=== PATIENT | male | born 1935 | race Caucasian/White ===

== ENCOUNTER 2018-10-14 07:05 | Emergency (ER) | payer MEDICARE, OTHER ==
[2018-10-14 07:29] VITALS: BP 106/59; PULSE 101
[2018-10-14 08:21] LABS: CHLORIDE,CL 99 mmol/L (98-107); SODIUM,NA 137 mmol/L (136-145)
[2018-10-14 08:23] LABS: ANION GAP 14.7 mmol/L (10-20)
--- NOTE | 2018-10-14 08:46 | EDM.PDOC ---
ED HPI GENERAL MEDICAL PROBLEM - General Chief Complaint: General Stated Complaint: FELL DOWN THE STEPS Time Seen by Provider: 10/14/18 07:08 Source of Information: Reports: Patient History Limitations: Reports: No Limitations - History of Present Illness INITIAL COMMENTS - FREE TEXT/NARRATIVE: Pt. presents to ER with complaints of weakness and fall. Pt. states that his "legs gave out" and he fell down 3 stairs, landed on a landing, and then "slid" in a more controlled fashion down his backside/back. Denies striking his head. No neck pain. Pt. was able to get off the floor and ambulate to his car. His drove him. Pt. only complaint besides weakness was superficial upper arm/shoulder pain. Pt. states that he has been having increased weakness over the past several weeks to month. He recently had some dental work done and states that he is on antibiotics. He has also has some facial pain/sinus congestion and wonders if he has a sinus infection. Denies any dysuria. No urinary discoloration. Denies any rashes or skin lesions. No nausea, vomiting, or diarrhea. No melena, hematochezia, or hematemesis. Pt. denies any back or lower extremity injury in the fall. Onset: Today Location: Reports: Face, Upper Extremity, Left, Generalized Quality: Reports: Ache Severity: Mild Associated Symptoms: Reports: Weakness - Related Data Allergies Allergy/AdvReac Type Severity Reaction Status Date / Time No Known Allergies Allergy Verified 10/14/18 07:20 Home Meds: Home Meds Amoxicillin 500 mg TID 10/14/18 [History] Aspirin 81 mg DAILY 10/14/18 [History] Chlorhexidine Gluconate 15 ml BID 10/14/18 [History] Cholecalciferol (Vitamin D3) [Vitamin D3] 1,000 units DAILY 10/14/18 [History] L.acidoph,Paracasei, B.lactis [Probiotic] 1 cap DAILY 10/14/18 [History] Past Medical History HEENT History: Reports: Cataract Cardiovascular History: Reports: None Respiratory History: Reports: Other (See Below) Other Respiratory History: recently hospitalized for pneumonia Gastrointestinal History: Reports: Other (See Below) Other Gastrointestinal History: hernia repair Genitourinary History: Reports: Prostate Disorder Other Genitourinary History: prostate cancer Musculoskeletal History: Reports: Arthritis, Back Pain, Chronic Neurological History: Reports: None Psychiatric History: Reports: None Endocrine/Metabolic History: Reports: None Hematologic History: Reports: None Immunologic History: Reports: None Oncologic (Cancer) History: Reports: Prostate Other Oncologic History: 2010 - Past Surgical History HEENT Surgical History: Reports: Cataract Surgery GI Surgical History: Reports: Hernia Repair/Other Oncologic Surgical History: Reports: None Social & Family History - Family History Family Medical History: Noncontributory - Tobacco Use Smoking Status *Q: Never Smoker - Caffeine Use Caffeine Use: Reports: Coffee, Soda - Recreational Drug Use Recreational Drug Use: No - Living Situation & Occupation Living situation: Reports: , with Spouse ED ROS GENERAL - Review of Systems Review Of Systems: See Below Constitutional: Reports: Malaise, Weakness, Fatigue. Denies: Fever, Chills, Diaphoresis HEENT: Reports: Sinus Problem Respiratory: Reports: No Symptoms. Denies: Shortness of Breath, Wheezing, Cough Cardiovascular: Reports: No Symptoms. Denies: Chest Pain, Dyspnea on Exertion, Edema, Palpitations, PND Endocrine: Reports: No Symptoms GI/Abdominal: Reports: No Symptoms. Denies: Abdominal Pain, Black Stool, Distension, Hematemesis, Hematochezia, Melena : Reports: No Symptoms Musculoskeletal: Reports: No Symptoms Skin: Reports: No Symptoms Neurological: Reports: Weakness. Denies: Confusion, Dizziness, Headache Psychiatric: Reports: No Symptoms Hematologic/Lymphatic: Reports: No Symptoms Immunologic: Reports: No Symptoms ED EXAM, GENERAL - Physical Exam Exam: See Below Exam Limited By: No Limitations General Appearance: Alert, WD/WN, No Apparent Distress Eye Exam: Bilateral Eye: EOMI, Normal Fundi, Normal Inspection, PERRL Ears: Normal External Exam, Normal Canal, Hearing Grossly Normal, Normal TMs Ear Exam: Bilateral Ear: Auricle Normal, Canal Normal, TM normal Nose: Normal Inspection, Normal Mucosa, No Blood Throat/Mouth: Normal Inspection, Normal Lips, Normal Teeth, Normal Gums, Normal Oropharynx, Normal Voice, No Airway Compromise Head: Atraumatic, Normocephalic Neck: Normal Inspection, Supple, Non-Tender, Full Range of Motion Respiratory/Chest: No Respiratory Distress, Lungs Clear, Normal Breath Sounds, No Accessory Muscle Use, Chest Non-Tender Cardiovascular: Normal Peripheral Pulses, Regular Rate, Rhythm, No Edema, No Gallop, No JVD, No Murmur, No Rub Peripheral Pulses: 4+: Radial (L) GI/Abdominal: Normal Bowel Sounds, Soft, Non-Tender, No Organomegaly, No Distention, No Abnormal Bruit, No Mass, Pelvis Stable (Male) Exam: Deferred Rectal (Males) Exam: Deferred Back Exam: Normal Inspection, Full Range of Motion Extremities: Normal Inspection, Normal Range of Motion, Non-Tender, No Pedal Edema, Normal Capillary Refill Neurological: Alert, Oriented, CN II-XII Intact, Normal Cognition, Normal Gait, Normal Reflexes, No Motor/Sensory Deficits Psychiatric: Normal Affect, Normal Mood Skin Exam: Warm, Dry, Intact, Normal Color, No Rash Lymphatic: No Adenopathy Course - Vital Signs Last Recorded V/S: Last Vital Signs Temp 37.6 C 10/14/18 07:05 Pulse 101 H 10/14/18 07:05 Resp 16 10/14/18 07:05 BP 106/59 L 10/14/18 07:05 Pulse Ox 94 L 10/14/18 07:05 - Orders/Labs/Meds Orders: Active Orders 24 hr Category Date Time Status EKG Documentation Completion [RC] STAT Care 10/14/18 07:28 Active CULTURE BLOOD [BC] Stat Lab 10/14/18 07:45 Received CULTURE BLOOD [BC] Stat Lab 10/14/18 07:51 Received CULTURE URINE [RM] Stat Lab 10/14/18 09:22 Ordered Blood Culture x2 Reflex Set [OM.PC] Stat Oth 10/14/18 07:31 Ordered Labs: Laboratory Tests 10/14/18 10/14/18 10/14/18 Range/Units 07:45 07:45 07:45 WBC 8.6 (4.0-10.0) x10^3/uL RBC 4.48 L (4.5-6.0) x10^6/uL Hgb 13.9 L (14.0-18.0) g/dL Hct 41.1 (40.0-52.0) % MCV 91.7 D (78.0-93.0) fL MCH 31.0 (26.0-32.0) pg MCHC 33.8 (32.0-36.0) g/dL RDW Coeff of Acacia 12.5 (10.0-15.0) % Plt Count 204 (130-400) x10^3/uL Neut % (Auto) 86.5 H (50.0-80.0) % Lymph % (Auto) 5.6 L (25.0-50.0) % Hunt % (Auto) 5.9 (2.0-11.0) % Eos % (Auto) 1.7 (0.0-4.0) % Baso % (Auto) 0.3 (0.2-1.2) % PT 11.2 (10.0-12.8) SEC INR 1.0 L (2.0-3.5) Sodium 137 (136-145) mmol/L Potassium 3.7 (3.5-5.1) mmol/L Chloride 99 (98-107) mmol/L Carbon Dioxide 27 (21-32) mmol/L Anion Gap 14.7 (10-20) mmol/L BUN 19 H (7-18) mg/dL Creatinine 1.0 (0.70-1.30) mg/dL Est Cr Clr Drug Dosing 67.36 mL/min Estimated GFR (MDRD) > 60 Glucose 133 H (74-106) mg/dL Lactic Acid (0.4-2.0) mmol/L Calcium 8.7 (8.5-10.1) mg/dL Corrected Calcium 8.86 (8.5-10.1) mg/dL Phosphorus 2.4 L (2.6-4.7) mg/dL Magnesium 2.2 (1.8-2.4) mg/dL Total Bilirubin 0.7 (0.2-1.0) mg/dL AST 22 (15-37) U/L ALT 22 (16-63) U/L Alkaline Phosphatase 70 (46-116) U/L Troponin I < 0.017 (<=0.056) ng/mL C-Reactive Protein 0.4 (<=0.9) mg/dL Total Protein 6.8 (6.4-8.2) g/dL Albumin 3.8 (3.4-5.0) g/dL Globulin 3.0 Albumin/Globulin Ratio 1.27 Urine Color (YELLOW) Urine Appearance (CLEAR) Urine pH (5.0-8.0) Ur Specific Gerber Urine Protein (NEGATIVE) mg/dL Urine Glucose (UA) (NEGATIVE) mg/dL Urine Ketones (NEGATIVE) mg/dL Urine Occult Blood (NEGATIVE) Urine Nitrite (NEGATIVE) Urine Bilirubin (NEGATIVE) Urine Urobilinogen (0.2) EU/dL Ur Leukocyte Esterase (NEGATIVE) Urine RBC (NOT SEEN) /HPF Urine WBC (NOT SEEN) /HPF Ur Squamous Epith Cells (NEGATIVE) /HPF Urine Bacteria (NEGATIVE) /HPF Urine Mucus (NEGATIVE) /LPF 10/14/18 10/14/18 Range/Units 07:45 08:50 WBC (4.0-10.0) x10^3/uL RBC (4.5-6.0) x10^6/uL Hgb (14.0-18.0) g/dL Hct (40.0-52.0) % MCV (78.0-93.0) fL MCH (26.0-32.0) pg MCHC (32.0-36.0) g/dL RDW Coeff of Acacia (10.0-15.0) % Plt Count (130-400) x10^3/uL Neut % (Auto) (50.0-80.0) % Lymph % (Auto) (25.0-50.0) % Hunt % (Auto) (2.0-11.0) % Eos % (Auto) (0.0-4.0) % Baso % (Auto) (0.2-1.2) % PT (10.0-12.8) SEC INR (2.0-3.5) Sodium (136-145) mmol/L Potassium (3.5-5.1) mmol/L Chloride (98-107) mmol/L Carbon Dioxide (21-32) mmol/L Anion Gap (10-20) mmol/L BUN (7-18) mg/dL Creatinine (0.70-1.30) mg/dL Est Cr Clr Drug Dosing mL/min Estimated GFR (MDRD) Glucose (74-106) mg/dL Lactic Acid 1.7 (0.4-2.0) mmol/L Calcium (8.5-10.1) mg/dL Corrected Calcium (8.5-10.1) mg/dL Phosphorus (2.6-4.7) mg/dL Magnesium (1.8-2.4) mg/dL Total Bilirubin (0.2-1.0) mg/dL AST (15-37) U/L ALT (16-63) U/L Alkaline Phosphatase (46-116) U/L Troponin I (<=0.056) ng/mL C-Reactive Protein (<=0.9) mg/dL Total Protein (6.4-8.2) g/dL Albumin (3.4-5.0) g/dL Globulin Albumin/Globulin Ratio Urine Color Yellow (YELLOW) Urine Appearance Slightly cloudy H (CLEAR) Urine pH 6.5 (5.0-8.0) Ur Specific Gerber 1.020 Urine Protein 30 H (NEGATIVE) mg/dL Urine Glucose (UA) Negative (NEGATIVE) mg/dL Urine Ketones 15 H (NEGATIVE) mg/dL Urine Occult Blood Trace-lysed H (NEGATIVE) Urine Nitrite Negative (NEGATIVE) Urine Bilirubin Negative (NEGATIVE) Urine Urobilinogen 0.2 (0.2) EU/dL Ur Leukocyte Esterase Trace H (NEGATIVE) Urine RBC 5-10 H (NOT SEEN) /HPF Urine WBC 5-10 H (NOT SEEN) /HPF Ur Squamous Epith Cells Rare (NEGATIVE) /HPF Urine Bacteria Occasional H (NEGATIVE) /HPF Urine Mucus Few H (NEGATIVE) /LPF - Radiology Interpretation Free Text/Narrative:: CT head without contrast negative for acute pathology. Chest x-ray is negative. Departure - Departure Time of Disposition: 09:23 Disposition: Home, Self-Care 01 Clinical Impression: Fall (on) (from) other stairs and steps, initial encounter, UTI, Urinary tract infectious disease - Discharge Information Instructions: Amoxicillin; Clavulanic Acid tablets, Urinary Tract Infection, Adult, Fall Prevention in the Home, Adult, Probiotics Referrals: Davonte Figuereod MD [Primary Care Provider] - Forms: ED Department Discharge Additional Instructions: Stop the amoxicillin Start augmentin. Continue to take the probiotic. Drink plenty of fluids Return to ER if you have increased pain elsewhere, chest pain, shortness of breath, difficulty walking or speaking. - Problem List Review Problem List Initiated/Reviewed/Updated: Yes - My Orders Last 24 Hours: My Active Orders 10/14/18 07:28 EKG Documentation Completion [RC] STAT 10/14/18 07:31 Blood Culture x2 Reflex Set [OM.PC] Stat 10/14/18 07:45 CULTURE BLOOD [BC] Stat 10/14/18 07:51 CULTURE BLOOD [BC] Stat 10/14/18 09:22 CULTURE URINE [RM] Stat - Assessment/Plan Last 24 Hours: My Active Orders 10/14/18 07:28 EKG Documentation Completion [RC] STAT 10/14/18 07:31 Blood Culture x2 Reflex Set [OM.PC] Stat 10/14/18 07:45 CULTURE BLOOD [BC] Stat 10/14/18 07:51 CULTURE BLOOD [BC] Stat 10/14/18 09:22 CULTURE URINE [RM] Stat Plan: Mild UTI vs. asymptomatic bacturia. He only has a trace of LE in his urine, but given his weakness we will change his antibiotic from amoxicillin to augmentin to cover for more urinary pathogens. He has been increasingly weak over the summer so this could very likely be a chronic problem for Mr. Nazario. Drink plenty of fluids. Was given a handout on falls and fall protection. Advised to follow-up in clinic if he is still having problems, especially chest pain, shortness of breath, difficulty speaking or walking. Urine will be cultured.
--- NOTE | 2018-10-14 08:54 | CT ---
[id number] CT/CT Head WO IV EXAM: CT Head WO IV CLINICAL DATA: TRAUMA COMPARISON: CORRELATION IS MADE WITH THE EXAM OF JANUARY 14, 2016. FINDINGS: There is no mass or mass effect. There is no hemorrhage or hydrocephalus. There are no extra-axial fluid collections. There are no sites of abnormal attenuation. IMPRESSION: NO PLAIN CT EVIDENCE OF ACUTE INTRACRANIAL PROCESS. Sky Ortega MD 10/14/18 0852 Thank you for allowing us to participate in the care of your patient.
== END 2018-10-14 09:30 | disposition home or self-care (01) ==
LOC: VM.ED 07:05
DX: N39.0 Urinary tract infection, site not specified (principal); Z79.899 Other long term (current) drug therapy; Z79.82 Long term (current) use of aspirin; W10.9XXA Fall (on) (from) unspecified stairs and steps, initial encounter
CPT/HCPCS: 36415; 70450; 80053; 81001; 83605; 83735; 84100; 84484; 85025; 85610; 86140; 87040; 87086; 93005; 99284-25; 99284-GF

== ENCOUNTER 2018-10-20 13:46 | Inpatient (IN) | payer MEDICARE, OTHER ==
[2018-10-20] MEDS ORDERED: Acetaminophen 500 MG Tab PO PRN (14:25)
[2018-10-20] MEDS ORDERED: Docusate Sodium 100 MG Cap PO PRN (14:28)
[2018-10-20] MEDS ORDERED: Haloperidol 0.5 MG Tab PO PRN (14:30)
[2018-10-20] MEDS: Chlorhexidine Gluconate 0.12% Oral Rinse 15 ML Cup PO SCH (21:37)
[2018-10-21] MEDS ORDERED: Haloperidol 0.5 MG Tab PO PRN (06:04)
[2018-10-21] MEDS: Chlorhexidine Gluconate 0.12% Oral Rinse 15 ML Cup PO SCH ×2 (08:12→19:24)
[2018-10-21] MEDS: Aspirin 81 MG Tab.Chew PO SCH (08:12)
[2018-10-21] MEDS: Enoxaparin 40 MG/0.4 ML Syringe SUBCUT SCH (08:12)
[2018-10-21] MEDS: Lactobacillus Rhamnosus GG (Probiotic) Cap PO SCH (08:12)
[2018-10-21] MEDS: Cholecalciferol (Vitamin D3) 25 MCG Tab PO SCH (08:12)
[2018-10-22] MEDS: Enoxaparin 40 MG/0.4 ML Syringe SUBCUT SCH (08:19)
[2018-10-22] MEDS: Aspirin 81 MG Tab.Chew PO SCH (08:20)
[2018-10-22] MEDS: Lactobacillus Rhamnosus GG (Probiotic) Cap PO SCH (08:20)
[2018-10-22] MEDS: Cholecalciferol (Vitamin D3) 25 MCG Tab PO SCH (08:20)
[2018-10-22] MEDS: Chlorhexidine Gluconate 0.12% Oral Rinse 15 ML Cup PO SCH ×2 (08:20→21:30)
[2018-10-23] MEDS: Cholecalciferol (Vitamin D3) 25 MCG Tab PO SCH (08:25)
[2018-10-23] MEDS: Aspirin 81 MG Tab.Chew PO SCH (08:25)
[2018-10-23] MEDS: Chlorhexidine Gluconate 0.12% Oral Rinse 15 ML Cup PO SCH ×2 (08:25→20:24)
[2018-10-23] MEDS: Lactobacillus Rhamnosus GG (Probiotic) Cap PO SCH (08:25)
[2018-10-23] MEDS: Enoxaparin 40 MG/0.4 ML Syringe SUBCUT SCH (08:25)
--- NOTE | 2018-10-23 14:37 | PCM.PN ---
- General Info Date of Service: 10/23/18 Admission Dx/Problem (Free Text): Subjective. Patient's doing well. He feels strength is slowly improving. PT doesn't feel he is quite goals but should be within the next week or so. He's been afebrile normoxic. He is finished antibiotics. Still some mild delirium- type confusion. Head CT was otherwise normal in the ER. Basic labs were normal. Objective: Vital signs are still stable. He is sitting in chair talking with family smiling happy. Can recall year and place but some difficulty with month. Heart and lungs are clear extremity is warm well perfused. Assessment and plan: Community acquired pneumonia has improved. He's finished antibiotics. Still little bit weak with gait. Little bit of fall risk. PT continue to work with them. Probably discharge early next week. Had some mild sundowning-type delirium here. We will reevaluate only seen in the clinic in a couple weeks for follow-up. Still having issues could pursue more of a dementia workup. Head CT was otherwise normal one week ago. he shuffles a little bit but not a lot of tremor, could consider movement disorder as well. - Patient Data Vitals - Most Recent: Last Vital Signs Temp 36.3 C 10/23/18 05:16 Pulse 87 10/23/18 05:16 Resp 20 10/23/18 05:16 BP 131/67 10/23/18 05:16 Pulse Ox 93 L 10/23/18 05:16 Weight - Most Recent: 102.143 kg I&O - Last 24 Hours: Intake & Output 10/22/18 10/23/18 10/23/18 22:59 06:59 14:59 Intake Total 660 Balance 660 Med Orders - Current: Current Medications Acetaminophen (Tylenol Extra Strength) 500 mg PO Q4H PRN PRN Reason: Fever Greater Than 102 Aspirin (Aspirin) 81 mg PO WITHBREAKFAST [facility] Last Admin: 10/23/18 08:25 Dose: 81 mg Chlorhexidine Gluconate (Peridex 0.12% Rinse) 15 ml PO BID [facility] Last Admin: 10/23/18 08:25 Dose: 15 ml Cholecalciferol (Vitamin D3) 25 mcg PO DAILY [facility] Last Admin: 10/23/18 08:25 Dose: 25 mcg Docusate Sodium (Colace) 100 mg PO BID PRN PRN Reason: Constipation Enoxaparin Sodium (Lovenox) 40 mg SUBCUT Q24H [facility] Last Admin: 10/23/18 08:25 Dose: 40 mg Haloperidol (Haldol) 0.25 mg PO DAILY PRN PRN Reason: Agitation Lactobacillus Rhamnosus (Culturelle) 1 cap PO DAILY [facility] Last Admin: 10/23/18 08:25 Dose: 1 cap Discontinued Medications Haloperidol (Haldol) 0.25 mg PO ONETIME PRN PRN Reason: Agitation Last Admin: 10/20/18 23:48 Dose: 0.25 mg - Problem List Review Problem List Initiated/Reviewed/Updated: Yes
[2018-10-24] MEDS: Chlorhexidine Gluconate 0.12% Oral Rinse 15 ML Cup PO SCH ×2 (07:40→21:43)
[2018-10-24] MEDS: Enoxaparin 40 MG/0.4 ML Syringe SUBCUT SCH (07:40)
[2018-10-24] MEDS: Lactobacillus Rhamnosus GG (Probiotic) Cap PO SCH (07:40)
[2018-10-24] MEDS: Cholecalciferol (Vitamin D3) 25 MCG Tab PO SCH (07:40)
[2018-10-24] MEDS: Aspirin 81 MG Tab.Chew PO SCH (07:40)
[2018-10-25] MEDS: Enoxaparin 40 MG/0.4 ML Syringe SUBCUT SCH (08:41)
[2018-10-25] MEDS: Lactobacillus Rhamnosus GG (Probiotic) Cap PO SCH (08:42)
[2018-10-25] MEDS: Cholecalciferol (Vitamin D3) 25 MCG Tab PO SCH (08:42)
[2018-10-25] MEDS: Aspirin 81 MG Tab.Chew PO SCH (08:42)
[2018-10-25] MEDS: Chlorhexidine Gluconate 0.12% Oral Rinse 15 ML Cup PO SCH ×2 (08:43→21:32)
[2018-10-26 05:36] VITALS: BP 129/74
[2018-10-26] MEDS: Chlorhexidine Gluconate 0.12% Oral Rinse 15 ML Cup PO SCH (07:47)
[2018-10-26] MEDS: Enoxaparin 40 MG/0.4 ML Syringe SUBCUT SCH (07:47)
[2018-10-26] MEDS: Cholecalciferol (Vitamin D3) 25 MCG Tab PO SCH (07:47)
[2018-10-26] MEDS: Aspirin 81 MG Tab.Chew PO SCH (07:47)
[2018-10-26] MEDS: Lactobacillus Rhamnosus GG (Probiotic) Cap PO SCH (07:47)
--- NOTE | 2018-10-26 09:45 | PCM.DCSUM1 ---
Discharge Summary - Hospital Course Brief History: Mr. Nazario is an 83 yo male who was admitted to swing bed for strengthening after an acute hospitalization for community acquired pneumonia. - Discharge Data Discharge Date: 10/26/18 Discharge Disposition: Home, Self-Care 01 Condition: Good - Discharge Diagnosis/Problem(s) (1) Physical deconditioning SNOMED Code(s): 58873662898900 ICD Code: R53.81 - OTHER MALAISE Status: Acute Current Visit: Yes (2) CAP (community acquired pneumonia) SNOMED Code(s): 066477682 ICD Code: J18.9 - PNEUMONIA, UNSPECIFIED ORGANISM Status: Acute Priority : Medium Current Visit: No Qualifiers: Laterality: left Lung location: lower lobe of lung Qualified Code(s): J18.1 - Lobar pneumonia, unspecified organism (3) Confusion SNOMED Code(s): 157727203 ICD Code: R41.0 - DISORIENTATION, UNSPECIFIED Status: Resolved Current Visit: No (4) Prostate cancer SNOMED Code(s): 133616416 ICD Code: C61 - MALIGNANT NEOPLASM OF PROSTATE Status: Chronic Current Visit: No Onset Date: ~2010 - Patient Summary/Data Operative Procedure(s) Performed: none Complications: none Consults: Consultations 10/20/18 19:25 PT Evaluation and Treatment [CONS] Routine 10/20/18 19:26 OT Evaluation and Treatment [CONS] Routine Labs Pending at D/C: none Recommended Follow-up Testing/Procedures: none Planned Operative Procedure(s) after DC: none Hospital Course: He was admitted to swing bed. His antibiotic course was completed. He worked with PT and OT and progressed well with this. It is no longer felt he meets criteria to continue on swing bed cares. Discharging with home health was discussed earlier this week and he and his declined. Therefore, he will be returning home independently to follow-up with his PCP in 2 weeks. His swing bed stay was otherwise uncomplicated. - Patient Instructions Diet: Usual Diet as Tolerated Activity: As Tolerated - Discharge Plan *PRESCRIPTION DRUG MONITORING PROGRAM REVIEWED*: Not Applicable *COPY OF PRESCRIPTION DRUG MONITORING REPORT IN PATIENT AURELIO: Not Applicable Home Medications: Home Meds Aspirin 81 mg PO DAILY 10/14/18 [History] Chlorhexidine Gluconate 15 ml PO BID 10/14/18 [History] Cholecalciferol (Vitamin D3) [Vitamin D3] 1,000 units PO DAILY 10/14/18 [History ] L.acidoph,Paracasei, B.lactis [Probiotic] 1 cap PO DAILY 10/14/18 [History] - Discharge Summary/Plan Comment DC Time >30 min.: No - General Info Date of Service: 10/26/18 Subjective Update: Patient is feeling well this morning. He is prepared for dismissal home. He denies any questions or concerns. He is looking forward to getting home. He still has some cough but this is steadily improving. No fever or shortness of breath. He is eating and drinking well. He is having regular bowel movements and voiding without issues. - Review of Systems General: Reports: No Symptoms HEENT: Reports: No Symptoms Pulmonary: Reports: No Symptoms Cardiovascular: Reports: No Symptoms Gastrointestinal: Reports: No Symptoms Genitourinary: Reports: No Symptoms Musculoskeletal: Reports: No Symptoms Skin: Reports: No Symptoms - Patient Data Vitals - Most Recent: Last Vital Signs Temp 36.8 C 10/26/18 05:35 Pulse 68 10/26/18 05:35 Resp 16 10/26/18 05:35 BP 129/74 10/26/18 05:35 Pulse Ox 95 10/26/18 05:35 Weight - Most Recent: 102.143 kg I&O - Last 24 hours: Intake & Output 10/25/18 10/26/18 10/26/18 22:59 06:59 14:59 Intake Total 220 Balance 220 Med Orders - Current: Current Medications Acetaminophen (Tylenol Extra Strength) 500 mg PO Q4H PRN PRN Reason: Fever Greater Than 102 Aspirin (Aspirin) 81 mg PO WITHBREAKFAST [facility] Last Admin: 10/26/18 07:47 Dose: 81 mg Chlorhexidine Gluconate (Peridex 0.12% Rinse) 15 ml PO BID [facility] Last Admin: 10/26/18 07:47 Dose: 15 ml Cholecalciferol (Vitamin D3) 25 mcg PO DAILY [facility] Last Admin: 10/26/18 07:47 Dose: 25 mcg Docusate Sodium (Colace) 100 mg PO BID PRN PRN Reason: Constipation Enoxaparin Sodium (Lovenox) 40 mg SUBCUT Q24H [facility] Last Admin: 10/26/18 07:47 Dose: 40 mg Haloperidol (Haldol) 0.25 mg PO DAILY PRN PRN Reason: Agitation Lactobacillus Rhamnosus (Culturelle) 1 cap PO DAILY [facility] Last Admin: 10/26/18 07:47 Dose: 1 cap Discontinued Medications Haloperidol (Haldol) 0.25 mg PO ONETIME PRN PRN Reason: Agitation Last Admin: 10/20/18 23:48 Dose: 0.25 mg - Exam General: Reports: Alert, Cooperative, No Acute Distress HEENT: Reports: Mucous Membr. Moist/[place] Neck: Reports: Supple, Trachea Midline, No Thyromegaly. Denies: Lymphadenopathy Lungs: Reports: Clear to Auscultation, Normal Respiratory Effort Cardiovascular: Reports: Regular Rate, Regular Rhythm, No Murmurs GI/Abdominal Exam: Normal Bowel Sounds, Soft, Non-Tender, No Organomegaly, No Distention, No Mass Extremities: Non-Tender, No Pedal Edema, Normal Capillary Refill Skin: Reports: Warm, Dry, Intact
== END 2018-10-26 12:40 | disposition home or self-care (01) | DRG 194 ==
LOC: VM.MS 14:00
PROVIDERS: ADMIT Internal Medicine; ATTEND Family Medicine
DX: J18.1 Lobar pneumonia, unspecified organism (principal); F05 Delirium due to known physiological condition; R41.0 Disorientation, unspecified; Z85.46 Personal history of malignant neoplasm of prostate; Z79.82 Long term (current) use of aspirin
CPT/HCPCS: 97110-GO; 97110-GP; 97116-GP; 97530-GP; 97535-GO; A9270-GY; J1650

== ENCOUNTER 2019-11-07 09:40 | Emergency (ER) | payer MEDICARE ==
[2019-11-07] MEDS ORDERED: Sodium Chloride 0.9% 10 ML Syringe FLUSH PRN (09:46)
--- NOTE | 2019-11-07 10:13 | CT ---
[id number] CT/CT Head Stroke Protocol EXAM: NONCONTRAST HEAD CT INDICATION: STROKE CODE. COMPARISON: October 14, 2018. DISCUSSION: There is mild generalized atrophy. Mild to moderate multifocal white matter hypoattenuation is nonspecific, but generally ascribed to chronic small vessel ischemia. No mass effect or midline shift. No acute hemorrhage or extra-axial fluid collection. There is hypodensity in the left superior cerebellum and left occipital lobe compatible with acute to subacute ischemia. Apparent mild hypodensity in the temporal lobe, favor artifact over acute ischemia. Mild left maxillary sinus mucosal thickening. Results called at 10:05 AM on 11/07/2019. IMPRESSION: 1. 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 Galileo Luevano MD 11/07/19 1011 Thank you for allowing us to participate in the care of your patient.
[2019-11-07] MEDS ORDERED: Lactated Ringers 1,000 ML IV ONE (10:23)
[2019-11-07 10:29] LABS: PTT,PARTIAL THROMBOPLSTIN TIME 27.4 SEC (25.6-32.8)
[2019-11-07 10:33] LABS: ANION GAP 12.8 mmol/L (10-20); CHLORIDE,CL 103 mmol/L (98-107); SODIUM,NA 138 mmol/L (136-145)
--- NOTE | 2019-11-07 10:34 | EDM.PDOC ---
ED HPI GENERAL MEDICAL PROBLEM - General Stated Complaint: CONFUSION,DIZZINESS Time Seen by Provider: 11/07/19 09:41 Source of Information: Reports: Patient History Limitations: Reports: No Limitations - History of Present Illness INITIAL COMMENTS - FREE TEXT/NARRATIVE: Patient comes emergency department today from home with his with concerns of visual disturbances and confusion. This patient acutely yesterday at 1500 hrs. suddenly felt lightheaded and dizzy. He noted as he was driving home that has having a different time seeing the road signs. At home he was trying to grab a glass of water last night and could not pick it up when he was not even close about a foot away from the glass of water when he was trying to get it. During the night he got up and emptied to urinate on the floor because he was confused and did not know where to go. This morning he continues of difficulty with his vision as well as fine motor such as picking up a glass of water. His brought him to the emergency department. On arrival the patient really has no complaints. He has any head neck or back pain. He denies any falls or trauma. He denies any chest pain shortness of breath or difficulty breathing. No fever no chills. No cough or congestion. No abdominal pain nausea or vomiting. No hematuria dysuria or urinary frequency. He does complain that it is difficult for him to see many things and they look very different. He denies diplopia. No Covid exposure no COVID concerns. - Related Data Allergies Allergy/AdvReac Type Severity Reaction Status Date / Time No Known Allergies Allergy Verified 10/14/18 07:20 Home Meds: Home Meds Aspirin 81 mg PO DAILY 10/14/18 [History] Chlorhexidine Gluconate 15 ml PO BID 10/14/18 [History] Cholecalciferol (Vitamin D3) [Vitamin D3] 1,000 units PO DAILY 10/14/18 [History] L.acidoph,Paracasei, B.lactis [Probiotic] 1 cap PO DAILY 10/14/18 [History] Past Medical History HEENT History: Reports: Cataract Cardiovascular History: Reports: None Respiratory History: Reports: Other (See Below) Other Respiratory History: recently hospitalized for pneumonia Gastrointestinal History: Reports: Other (See Below) Other Gastrointestinal History: hernia repair Genitourinary History: Reports: Prostate Disorder Other Genitourinary History: prostate cancer Musculoskeletal History: Reports: Arthritis, Back Pain, Chronic Neurological History: Reports: None Psychiatric History: Reports: None Endocrine/Metabolic History: Reports: None Hematologic History: Reports: None Immunologic History: Reports: None Oncologic (Cancer) History: Reports: Prostate Other Oncologic History: 2010 - Infectious Disease History Infectious Disease History: Reports: None - Past Surgical History HEENT Surgical History: Reports: Cataract Surgery GI Surgical History: Reports: Hernia Repair/Other Oncologic Surgical History: Reports: None Social & Family History - Family History Family Medical History: Noncontributory - Caffeine Use Caffeine Use: Reports: Coffee - Living Situation & Occupation Living situation: Reports: , with Spouse ED ROS GENERAL - Review of Systems Review Of Systems: Comprehensive ROS is negative, except as noted in HPI. ED EXAM, NEURO - Physical Exam Exam: See Below General Appearance: Alert, WD/WN, No Apparent Distress Eye Exam: Bilateral Eye: EOMI, PERRL Ears: Normal External Exam Nose: Normal Inspection Throat/Mouth: Normal Inspection, Normal Lips Head Exam: Atraumatic, Normocephalic Neck: Normal Inspection, Supple, Non-Tender, Full Range of Motion Respiratory/Chest: No Respiratory Distress, Lungs Clear, Normal Breath Sounds, No Accessory Muscle Use, Chest Non-Tender Cardiovascular: Normal Peripheral Pulses, Regular Rate, Rhythm GI/Abdominal: Normal Bowel Sounds, Soft, Non-Tender (Male) Exam: Deferred Rectal (Males) Exam: Deferred Neurological: Alert, Normal Mood/Affect, Normal Dorsiflexion, Normal Plantar Flexion, Normal Gait (which is somewhat shuffling although this is chronic for him. ), Normal Reflexes, No Motor/Sensory Deficits, Oriented x 3, Other (NIH a total of 4. Unable to identify the pictures like the glove feather. Only sees the right side of the picture. Neglect to the right as well. 2 for visual avendano, 1 for speech and 1 for neglect. ). No: CN II-XII Intact (He has a dense vision field cut to the right visual field. ), Ataxia (NO ataxia. ) Back Exam: Normal Inspection, Full Range of Motion Extremities: Normal Inspection, Normal Range of Motion, No Pedal Edema, Normal Capillary Refill Psychiatric: Normal Affect, Normal Mood Skin Exam: Warm, Dry, Intact, Normal Color, No Rash EKG INTERPRETATION EKG Date: 11/07/19 Time: 10:02 Rhythm: NSR Rate (Beats/Min): 83 [place]: Normal P-Wave: Present QRS: Normal ST-T: Normal QT: Normal Course - Orders/Labs/Meds Orders: Active Orders 24 hr Category Date Time Status EKG Documentation Completion [RC] STAT Care 11/07/19 09:46 Active CTA Neck W & W/O Contrast [Ang Neck] [CT] Stat Exams 11/07/19 09:47 Ordered CULTURE URINE [RM] Stat Lab 11/07/19 12:00 Received Sodium Chloride 0.9% [Normal Saline] 1,000 ml Med 11/07/19 10:45 Active IV ASDIRECTED Sodium Chloride 0.9% [Saline Flush] Med 11/07/19 09:46 Active 10 ml FLUSH ASDIRECTED PRN Peripheral IV Insertion Adult [OM.PC] Stat Oth 11/07/19 09:46 Ordered Medication Orders Sodium Chloride (Normal Saline) 1,000 mls @ 500 mls/hr IV ASDIRECTED LUCIAN Last Admin: 11/07/19 10:35 Dose: 500 mls/hr Documented by: SERGEI Sodium Chloride (Saline Flush) 10 ml FLUSH ASDIRECTED PRN PRN Reason: Keep Vein Open Labs: Laboratory Tests 11/07/19 11/07/19 11/07/19 Range/Units 09:46 10:08 10:08 WBC 8.6 (4.0-10.0) x10^3/uL RBC 4.15 L (4.5-6.0) x10^6/uL Hgb 13.2 L (14.0-18.0) g/dL Hct 38.5 L (40.0-52.0) % MCV 92.8 (78.0-93.0) fL MCH 31.8 (26.0-32.0) pg MCHC 34.3 (32.0-36.0) g/dL RDW Coeff of [place]acia 12.4 (10.0-15.0) % Plt Count 172 (130-400) x10^3/uL Neut % (Auto) 85.6 H (50.0-80.0) % Lymph % (Auto) 8.0 L (25.0-50.0) % Perry % (Auto) 5.7 (2.0-11.0) % Eos % (Auto) 0.5 (0.0-4.0) % Baso % (Auto) 0.2 (0.2-1.2) % PT (9.5-12.3) SEC INR (2.0-3.5) APTT (25.6-32.8) SEC Sodium 138 (136-145) mmol/L Potassium 3.8 (3.5-5.1) mmol/L Chloride 103 (98-107) mmol/L Carbon Dioxide 26 (21-32) mmol/L Anion Gap 12.8 (10-20) mmol/L BUN 21 H (7-18) mg/dL Creatinine 0.9 (0.70-1.30) mg/dL Est Cr Clr Drug Dosing TNP Estimated GFR (MDRD) > 60 Glucose 133 H (74-106) mg/dL POC Glucose 141 H (74-106) mg/dL Calcium 8.3 L (8.5-10.1) mg/dL Corrected Calcium 8.78 (8.5-10.1) mg/dL Total Bilirubin 0.6 (0.2-1.0) mg/dL AST 17 (15-37) U/L ALT 20 (16-63) U/L Alkaline Phosphatase 66 (46-116) U/L POC Troponin I (0.00-0.08) ng/mL C-Reactive Protein 1.1 H (<=0.9) mg/dL Total Protein 6.1 L (6.4-8.2) g/dL Albumin 3.4 (3.4-5.0) g/dL Globulin 2.7 Albumin/Globulin Ratio 1.26 Urine Color (YELLOW) Urine Appearance (CLEAR) Urine pH (5.0-8.0) Ur Specific [place] Urine Protein (NEGATIVE) mg/dL Urine Glucose (UA) (NEGATIVE) mg/dL Urine Ketones (NEGATIVE) mg/dL Urine Occult Blood (NEGATIVE) Urine Nitrite (NEGATIVE) Urine Bilirubin (NEGATIVE) Urine Urobilinogen (0.2) EU/dL Ur Leukocyte Esterase (NEGATIVE) U Hyaline Cast (Auto) Urine RBC (NOT SEEN) /HPF Urine WBC (NOT SEEN) /HPF Ur Squamous Epith Cells (NEGATIVE) /HPF Urine Bacteria (NEGATIVE) /HPF Urine Mucus (NEGATIVE) /LPF Ethyl Alcohol < 3 (0-3) mg/dL 09/01/1511/07/19 11/07/19 Range/Units 10:08 10:09 12:00 WBC (4.0-10.0) x10^3/uL RBC (4.5-6.0) x10^6/uL Hgb (14.0-18.0) g/dL Hct (40.0-52.0) % MCV (78.0-93.0) fL MCH (26.0-32.0) pg MCHC (32.0-36.0) g/dL RDW Coeff of [place] (10.0-15.0) % Plt Count (130-400) x10^3/uL Neut % (Auto) (50.0-80.0) % Lymph % (Auto) (25.0-50.0) % [place] % (Auto) (2.0-11.0) % Eos % (Auto) (0.0-4.0) % Baso % (Auto) (0.2-1.2) % PT 11.2 (9.5-12.3) SEC INR 1.0 L (2.0-3.5) APTT 27.4 (25.6-32.8) SEC Sodium (136-145) mmol/L Potassium (3.5-5.1) mmol/L Chloride (98-107) mmol/L Carbon Dioxide (21-32) mmol/L Anion Gap (10-20) mmol/L BUN (7-18) mg/dL Creatinine (0.70-1.30) mg/dL Est Cr Clr Drug Dosing Estimated GFR (MDRD) Glucose (74-106) mg/dL POC Glucose (74-106) mg/dL Calcium (8.5-10.1) mg/dL Corrected Calcium (8.5-10.1) mg/dL Total Bilirubin (0.2-1.0) mg/dL AST (15-37) U/L ALT (16-63) U/L Alkaline Phosphatase (46-116) U/L POC Troponin I 0.00 (0.00-0.08) ng/mL C-Reactive Protein (<=0.9) mg/dL Total Protein (6.4-8.2) g/dL Albumin (3.4-5.0) g/dL Globulin Albumin/Globulin Ratio Urine Color Dark yellow H (YELLOW) Urine Appearance Clear (CLEAR) Urine pH 6.0 (5.0-8.0) Ur Specific [place] 1.020 Urine Protein Negative (NEGATIVE) mg/dL Urine Glucose (UA) Negative (NEGATIVE) mg/dL Urine Ketones 15 H (NEGATIVE) mg/dL Urine Occult Blood Trace-intact H (NEGATIVE) Urine Nitrite Negative (NEGATIVE) Urine Bilirubin Negative (NEGATIVE) Urine Urobilinogen 0.2 (0.2) EU/dL Ur Leukocyte Esterase Trace H (NEGATIVE) U Hyaline Cast (Auto) Rare Urine RBC 5-10 H (NOT SEEN) /HPF Urine WBC 5-10 H (NOT SEEN) /HPF Ur Squamous Epith Cells Rare (NEGATIVE) /HPF Urine Bacteria Rare (NEGATIVE) /HPF Urine Mucus Rare H (NEGATIVE) /LPF Ethyl Alcohol (0-3) mg/dL Meds: Medications Generic Name Dose Route Start Last Admin Trade Name Freq PRN Reason Stop Dose Admin Sodium Chloride 1,000 mls @ 500 mls/hr 11/07/19 10:45 11/07/19 10:35 Normal Saline IV 500 mls/hr ASDIRECTED LUCIAN Administration Sodium Chloride 10 ml 11/07/19 09:46 Saline Flush FLUSH ASDIRECTED PRN Keep Vein Open Discontinued Medications Generic Name Dose Route Start Last Admin Trade Name Freq PRN Reason Stop Dose Admin Lactated Ringer's 1,000 mls @ 999 mls/hr 11/07/19 10:23 Ringers, Lactated IV 11/07/19 11:23 ONETIME ONE Iopamidol 100 ml 11/07/19 12:11 Isovue-300 (61%) IVPUSH 11/07/19 12:12 ONETIME ONE - Radiology Interpretation Free Text/Narrative:: CT of the head per radiology was called and reported to me at 1007. 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 CTA head and neck per radiology at 1037 no large vessel occlusion. - Re-Assessments/Exams Free Text/Narrative Re-Assessment/Exam: 11/07/19 Stroke code was called upon the patient's arrival. They were available shortly thereafter. Emergently to the CT scanner. EKG shows normal sinus rhythm without any ST elevation or depression when reviewed extemporaneously by myself. NIH stroke scale of 4. 1007 CT scan per radiology with reports of acute subacute cerebellar infarcts. 1015 I called and spoke with Dr. Lal the neurologist fur ironer at [facility] findings and concerns were relayed to him verbally over the phone. He did have the CT scan available for review. HIs recommendation due to the changes on CT is an admit to medicine for stroke work up no emergent intervention at this time. I then spoke with Dr. Montgomery at [facility] in [place]. [facility] findings and concerns were relayed to him verbally over the phone. No aspirin at this time and he accepted the patient in transfer to [facility] for further care management and work up. I discussed the findings of the acute cerebellar infarct with the patient his and their daughter. They are aware that due to the time constraints of when this happened there is no emergent intervention indicated at this time. They are comfortable with the plan of transferring him to [facility] for further stroke evaluation and work-up. Their questions were answered. Departure - Departure Time of Disposition: 10:34 Disposition: DC/Tfer to Acute Hospital 02 Clinical Impression: CVA (cerebral vascular accident) Qualifiers: CVA mechanism: unspecified Qualified Code(s): I63.9 - Cerebral infarction, unspecified - Discharge Information Referrals: Davonte Figueredo MD [Primary Care Provider] - Forms: Interfacility Transfer EMTALA - My Orders Last 24 Hours: My Active Orders 11/07/19 09:46 EKG Documentation Completion [RC] STAT Sodium Chloride 0.9% [Saline Flush] 10 ml FLUSH ASDIRECTED PRN Peripheral IV Insertion Adult [OM.PC] Stat 11/07/19 09:47 CTA Neck W & W/O Contrast [Ang Neck] [CT] Stat 11/07/19 10:45 Sodium Chloride 0.9% [Normal Saline] 1,000 ml IV ASDIRECTED 11/07/19 12:00 CULTURE URINE [RM] Stat - Assessment/Plan Last 24 Hours: My Active Orders 11/07/19 09:46 EKG Documentation Completion [RC] STAT Sodium Chloride 0.9% [Saline Flush] 10 ml FLUSH ASDIRECTED PRN Peripheral IV Insertion Adult [OM.PC] Stat 11/07/19 09:47 CTA Neck W & W/O Contrast [Ang Neck] [CT] Stat 11/07/19 10:45 Sodium Chloride 0.9% [Normal Saline] 1,000 ml IV ASDIRECTED 11/07/19 12:00 CULTURE URINE [RM] Stat
[2019-11-07] MEDS: Sodium Chloride 0.9% 1,000 ML IV SCH (10:35)
--- NOTE | 2019-11-07 10:41 | CT ---
[id number] CT/CTA Head Neck Exam: CTA Head Neck Clinical Data: NEUROLOGIC DEFICIT COMPARISON: CORRELATION IS MADE WITH THE EARLIER PLAIN CT BRAIN FINDINGS: There is no intracranial large vessel occlusion There is no appreciable stenosis of the cervical carotid arteries Calcified atherosclerotic plaque is seen in the left common carotid bifurcation There are degenerative changes of the cervical spine IMPRESSION: NO LARGE VESSEL OCCLUSION Sky Ortega MD 11/07/19 [id number] Thank you for allowing us to participate in the care of your patient.
[2019-11-07] MEDS: Iopamidol 612 MG/ML 100 ML Bottle IVPUSH ONE (15:13)
== END 2019-11-07 12:30 | disposition short-term general hospital (02) ==
LOC: VM.ED 09:40
DX: I63.9 Cerebral infarction, unspecified (principal); Z79.82 Long term (current) use of aspirin; Z79.899 Other long term (current) drug therapy
CPT/HCPCS: 36415; 70450; 70496; 70498; 80053; 80307; 81001; 82962; 84484; 85025; 85610; 85730; 86140; 87086; 93005; 96360; 99285; J7030; Q9967

== ENCOUNTER 2020-05-20 13:28 | Observation (INO) | payer MEDICARE, OTHER ==
[2020-05-20] MEDS ORDERED: Sodium Chloride 0.9% 10 ML Syringe FLUSH PRN (13:56)
--- NOTE | 2020-05-20 14:24 | CT ---
[id number] CT/CT Head Stroke Protocol Exam: CT Head Stroke Protocol Clinical Data: NEUROLOGIC THE COMPARISON: CORRELATION IS MADE WITH 2019 FINDINGS: There is no mass or mass effect There is no hemorrhage or hydrocephalus There are no extra-axial fluid collections or sites of abnormal attenuation Report called at time of dictation IMPRESSION: NEGATIVE PLAIN CT BRAIN Sky Ortega MD 05/20/20 [id number] Thank you for allowing us to participate in the care of your patient.
[2020-05-20 14:44] LABS: ANION GAP 11.3 mmol/L (5-15); CHLORIDE,CL 105 mmol/L (98-107); SODIUM,NA 141 mmol/L (136-145)
[2020-05-20 14:48] LABS: PTT,PARTIAL THROMBOPLSTIN TIME 26.7 SEC (25.6-32.8)
[2020-05-20] MEDS ORDERED: Lactated Ringers 1,000 ML IV SCH ×2 (15:00→19:30)
[2020-05-20 15:25] LABS: BARBITURATE SCREEN,URINE NEGATIVE (NEGATIVE); BENZODIAZEPINES SCREEN,URINE NEGATIVE (NEGATIVE); EDDP,URINE SCREEN NEGATIVE (NEGATIVE); METHAMPHETAMINE SCREEN, URINE NEGATIVE (NEGATIVE); TCA SCREEN,URINE NEGATIVE (NEGATIVE); THC SCREEN,URINE 50 NG/ML NEGATIVE (NEGATIVE)
[2020-05-20] MEDS ORDERED: Iopamidol 612 MG/ML 100 ML Bottle IVPUSH ONE (15:39)
--- NOTE | 2020-05-20 15:55 | CT ---
[id number] CT/CTA Head Neck Exam: CTA Head Neck Clinical Data: NEUROLOGIC DEFICIT COMPARISON: CORRELATION IS MADE WITH THE EARLIER EXAM TODAY FINDINGS: The current exam is being provided at 3:49 PM No intracranial large vessel occlusion is seen There is no aneurysm or vascular malformation There is atheromatous disease of the left common carotid bifurcation There is no appreciable cervical carotid stenosis IMPRESSION: NO INTRACRANIAL "LVO" LESION Sky Ortega MD 05/20/20 [id number] Thank you for allowing us to participate in the care of your patient.
--- NOTE | 2020-05-20 16:39 | EDM.PDOC ---
ED HPI GENERAL MEDICAL PROBLEM - General Chief Complaint: Neurological Problem Stated Complaint: POSSIBLE STROKE Time Seen by Provider: 05/20/20 13:28 Source of Information: Reports: Patient History Limitations: Reports: No Limitations - History of Present Illness INITIAL COMMENTS - FREE TEXT/NARRATIVE: Patient comes emergency department today from home with concerns of a possible stroke. This patient was at home by himself woke up this morning approximately 5 AM when was without complaints. He had a normal morning and then laid down to take a nap about 1130 this morning. He then woke up sometime following that. When he woke up he relates that he just felt "ill" as well as "nausea" and off. [place] his arrived. He informed her that he was not feeling well and she felt that he had a right facial droop as well as some slurred thick speech. 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 She brought him to the emergency department. Upon arrival patient really does not have any complaints. He denies any headache visual acuity changes confusions. No chest pain no shortness of breath or difficulty breathing. He does have a implanted loop recorder that is known shown no evidence of atrial fib according to the and the patient. They were unable to identify the site of his embolic stroke in the past. He has no chest pain shortness of breath or difficulty breathing. No cough or congestion. No weakness dizziness lightheadedness. No paresthesias. No syncope. No palpitations. No abdominal pain no nausea or vomiting. No fever no chills. No hematuria dysuria or urinary frequency. No black or tarry stools. Denies any paresthesias of his upper or lower extremities. Denies any change in the functionality of his upper or lower extremities. No visual acuity changes. No COVID exposure no COVID symptoms. - Related Data Allergies Allergy/AdvReac Type Severity Reaction Status Date / Time No Known Allergies Allergy Verified 05/20/20 16:04 Home Meds: Home Meds Cholecalciferol (Vitamin D3) [Vitamin D3] 1,000 units PO DAILY 10/14/18 [History] L.acidoph,Paracasei, B.lactis [Probiotic] 1 cap PO DAILY 10/14/18 [History] Acetaminophen 650 mg PO Q4H PRN 05/20/20 [History] Aspirin [Aspirin EC] 325 mg PO DAILY 05/20/20 [History] Cyanocobalamin (Vitamin B-12) [B-12] 1,000 mcg PO DAILY 05/20/20 [History] Multivit with Iron,Minerals [Complete Senior] 1 tab PO DAILY@12 05/20/20 [H istory] Rosuvastatin Calcium [Crestor] 40 mg PO DAILY 05/20/20 [History] Past Medical History HEENT History: Reports: Cataract, Other (See Below) Other HEENT History: hearing loss. pseudophakos. presbyopia. myopia Cardiovascular History: Reports: None Respiratory History: Reports: Other (See Below) Other Respiratory History: recently hospitalized for pneumonia Gastrointestinal History: Reports: Other (See Below) Other Gastrointestinal History: hernia repair. inguinal hernia Genitourinary History: Reports: Prostate Disorder Other Genitourinary History: prostate cancer. hydrocele Musculoskeletal History: Reports: Arthritis, Back Pain, Chronic Other Musculoskeletal History: coordination impairment. impairment of balance. impaired ADLs Neurological History: Reports: CVA, Other (See Below) Other Neuro History: cognitive deficit s/p CVA Psychiatric History: Reports: None Endocrine/Metabolic History: Reports: None Hematologic History: Reports: None Immunologic History: Reports: None Oncologic (Cancer) History: Reports: Prostate Other Oncologic History: 2010 - Infectious Disease History Infectious Disease History: Reports: None - Past Surgical History HEENT Surgical History: Reports: Cataract Surgery Other HEENT Surgeries/Procedures: dental implants GI Surgical History: Reports: Hernia Repair/Other Oncologic Surgical History: Reports: None Social & Family History - Family History Family Medical History: No Pertinent Family History - Caffeine Use Caffeine Use: Reports: Coffee - Living Situation & Occupation Living situation: Reports: , with Spouse ED ROS GENERAL - Review of Systems Review Of Systems: Comprehensive ROS is negative, except as noted in HPI. ED EXAM, NEURO - Physical Exam Exam: See Below Exam Limited By: No Limitations General Appearance: Alert, WD/WN, No Apparent Distress Eye Exam: Bilateral Eye: EOMI, PERRL Ears: Normal External Exam, Normal TMs Nose: Normal Inspection, Normal Mucosa, No Blood Throat/Mouth: Normal Inspection, Normal Lips, Normal Teeth, Normal Oropharynx, Normal Voice, No Airway Compromise Head Exam: Atraumatic, Normocephalic Neck: Normal Inspection, Supple, Non-Tender Respiratory/Chest: No Respiratory Distress, Lungs Clear, Normal Breath Sounds, No Accessory Muscle Use, Chest Non-Tender Cardiovascular: Normal Peripheral Pulses, Regular Rate, Rhythm, No Edema, No Murmur GI/Abdominal: Normal Bowel Sounds, Soft, Non-Tender, No Abnormal Bruit (Male) Exam: Deferred Rectal (Males) Exam: Deferred Neurological: Alert, Normal Mood/Affect, Normal Dorsiflexion, CN II-XII Intact, Normal Plantar Flexion, Normal Gait, Normal Reflexes, No Motor/Sensory Deficits, Oriented x 3, Other (NIH Stroke scale of one with 1 point noted for a slurred speech. ) DTR: 2+: Bicep (R), Bicep (L), Patella (R), Patella (L), Achilles (R), Achilles (L) Back Exam: Normal Inspection, Full Range of Motion Extremities: Normal Inspection, Normal Range of Motion, Non-Tender, No Pedal Edema, Normal Capillary Refill Psychiatric: Normal Affect, Normal Mood Skin Exam: Warm, Dry, Intact, Normal Color, No Rash Course - Vital Signs Last Recorded V/S: Last Vital Signs Temp 97.8 F 05/20/20 17:55 Pulse 105 H 05/20/20 17:55 Resp 19 05/20/20 17:55 BP 145/71 H 05/20/20 17:55 Pulse Ox 96 05/20/20 17:55 - Orders/Labs/Meds Orders: Active Orders 24 hr Category Date Time Status CTA Neck W & W/O Contrast [Ang Neck] [CT] Stat Exams 05/20/20 14:50 Ordered CULTURE URINE [RM] Stat Lab 05/20/20 15:11 Received Lactated Ringers [Ringers, Lactated] 1,000 ml Med 05/20/20 15:00 Active IV ASDIRECTED Sodium Chloride 0.9% [Saline Flush] Med 05/20/20 13:56 Active 10 ml FLUSH ASDIRECTED PRN Peripheral IV Insertion Adult [OM.PC] Stat Oth 05/20/20 13:56 Ordered Medication Orders Acetaminophen (Acetaminophen 325 Mg Tab) 650 mg PO Q4H PRN PRN Reason: Pain (Mild 1-3)/fever Aspirin (Aspirin 325 Mg Tab.Ec) 325 mg PO DAILY LUCIAN Atorvastatin Calcium (Atorvastatin 40 Mg Tab) 80 mg PO DAILY LUCIAN Cholecalciferol (Cholecalciferol (Vitamin D3) 25 Mcg Tab) 25 mcg PO DAILY LUCIAN Cyanocobalamin (Cyanocobalamin (Vitamin B12) 1,000 Mcg Tab) 1,000 mcg PO DAILY LUCIAN Lactated Ringer's (Ringers, Lactated) 1,000 mls @ 500 mls/hr IV ASDIRECTED LUCIAN Last Admin: 05/20/20 15:05 Dose: 500 mls/hr Documented by: RACHELLLSUS Lactated Ringer's (Ringers, Lactated) 1,000 mls @ 75 mls/hr IV ASDIRECTED LUCIAN Lactobacillus Rhamnosus (Lactobacillus Rhamnosus Gg (Probiotic) Cap) 1 cap PO DAILY LUCIAN Multivitamins/Minerals (Multivitamins With Iron/Calcium/Folic Acid/Minerals Tab) 1 tab PO DAILY@12 LUCIAN Sodium Chloride (Sodium Chloride 0.9% 10 Ml Syringe) 10 ml FLUSH ASDIRECTED PRN PRN Reason: Keep Vein Open Labs: Laboratory Tests 05/20/20 05/20/20 05/20/20 Range/Units 14:10 14:10 14:10 WBC 5.6 (4.0-10.0) x10^3/uL RBC 4.30 L (4.5-6.0) x10^6/uL Hgb 13.6 L (14.0-18.0) g/dL Hct 40.3 (40.0-52.0) % MCV 93.7 H (78.0-93.0) fL MCH 31.6 (26.0-32.0) pg MCHC 33.7 (32.0-36.0) g/dL RDW Coeff of [place]acia 13.0 (10.0-15.0) % Plt Count 156 (130-400) x10^3/uL Neut % (Auto) 77.7 (50.0-80.0) % Lymph % (Auto) 11.4 L (25.0-50.0) % [place] % (Auto) 8.0 (2.0-11.0) % Eos % (Auto) 2.5 (0.0-4.0) % Baso % (Auto) 0.4 (0.2-1.2) % PT 11.0 (9.9-12.5) SEC INR 1.0 L (2.0-3.5) APTT 26.7 (25.6-32.8) SEC Sodium 141 (136-145) mmol/L Potassium 4.3 (3.5-5.1) mmol/L Chloride 105 (98-107) mmol/L Carbon Dioxide 29 (21-32) mmol/L Anion Gap 11.3 (5-15) mmol/L BUN 22 H (7-18) mg/dL Creatinine 1.0 (0.70-1.30) mg/dL Est Cr Clr Drug Dosing TNP Estimated GFR (MDRD) > 60 Glucose 125 H (74-106) mg/dL Calcium 8.5 (8.5-10.1) mg/dL Corrected Calcium 8.82 (8.5-10.1) mg/dL Magnesium 2.3 (1.8-2.4) mg/dL Total Bilirubin 0.5 (0.2-1.0) mg/dL AST 26 (15-37) U/L ALT 38 (16-63) U/L Alkaline Phosphatase 73 (46-116) U/L Troponin I High Sens 7 (<=76) ng/L C-Reactive Protein 0.3 (<=0.9) mg/dL Total Protein 6.6 (6.4-8.2) g/dL Albumin 3.6 (3.4-5.0) g/dL Globulin 3.0 Albumin/Globulin Ratio 1.20 Urine Color (YELLOW) Urine Appearance (CLEAR) Urine pH (5.0-8.0) Ur Specific [place] Urine Protein (NEGATIVE) mg/dL Urine Glucose (UA) (NEGATIVE) mg/dL Urine Ketones (NEGATIVE) mg/dL Urine Occult Blood (NEGATIVE) Urine Nitrite (NEGATIVE) Urine Bilirubin (NEGATIVE) Urine Urobilinogen (0.2) EU/dL Ur Leukocyte Esterase (NEGATIVE) Urine RBC (NOT SEEN) /HPF Urine WBC (NOT SEEN) /HPF Urine Bacteria (NOT SEEN) /HPF Urine Opiates Screen (NEAGTIVE) Ur Buprenorphine Scrn (NEGATIVE) Ur Oxycodone Screen (NEGATIVE) Ur EDDP (Meth Metab) (NEGATIVE) Urine Methadone Screen (NEGATIVE) Ur Barbiturates Screen (NEGATIVE) Ur Tricyclics Screen (NEGATIVE) Ur Phencyclidine Scrn (NEGATIVE) Ur Amphetamine Screen (NEGATIVE) U Methamphetamines Scrn (NEGATIVE) Urine MDMA Screen (NEGATIVE) U Benzodiazepines Scrn (NEGATIVE) U Cocaine Metab Screen (NEGATIVE) U Marijuana (THC) Screen (NEGATIVE) Ethyl Alcohol (0-3) mg/dL 05/20/20 05/20/20 05/20/20 Range/Units 14:10 15:11 15:11 WBC (4.0-10.0) x10^3/uL RBC (4.5-6.0) x10^6/uL Hgb (14.0-18.0) g/dL Hct (40.0-52.0) % MCV (78.0-93.0) fL MCH (26.0-32.0) pg MCHC (32.0-36.0) g/dL RDW Coeff of Acacia (10.0-15.0) % Plt Count (130-400) x10^3/uL Neut % (Auto) (50.0-80.0) % Lymph % (Auto) (25.0-50.0) % [place] % (Auto) (2.0-11.0) % Eos % (Auto) (0.0-4.0) % Baso % (Auto) (0.2-1.2) % PT (9.9-12.5) SEC INR (2.0-3.5) APTT (25.6-32.8) SEC Sodium (136-145) mmol/L Potassium (3.5-5.1) mmol/L Chloride (98-107) mmol/L Carbon Dioxide (21-32) mmol/L Anion Gap (5-15) mmol/L BUN (7-18) mg/dL Creatinine (0.70-1.30) mg/dL Est Cr Clr Drug Dosing Estimated GFR (MDRD) Glucose (74-106) mg/dL Calcium (8.5-10.1) mg/dL Corrected Calcium (8.5-10.1) mg/dL Magnesium (1.8-2.4) mg/dL Total Bilirubin (0.2-1.0) mg/dL AST (15-37) U/L ALT (16-63) U/L Alkaline Phosphatase (46-116) U/L Troponin I High Sens (<=76) ng/L C-Reactive Protein (<=0.9) mg/dL Total Protein (6.4-8.2) g/dL Albumin (3.4-5.0) g/dL Globulin Albumin/Globulin Ratio Urine Color Yellow (YELLOW) Urine Appearance Clear (CLEAR) Urine pH 7.0 (5.0-8.0) Ur Specific [place] 1.015 Urine Protein Negative (NEGATIVE) mg/dL Urine Glucose (UA) Negative (NEGATIVE) mg/dL Urine Ketones Negative (NEGATIVE) mg/dL Urine Occult Blood Negative (NEGATIVE) Urine Nitrite Negative (NEGATIVE) Urine Bilirubin Negative (NEGATIVE) Urine Urobilinogen 0.2 (0.2) EU/dL Ur Leukocyte Esterase Trace H (NEGATIVE) Urine RBC 0-5 (NOT SEEN) /HPF Urine WBC 0-5 (NOT SEEN) /HPF Urine Bacteria Occasional H (NOT SEEN) /HPF Urine Opiates Screen Negative (NEAGTIVE) Ur Buprenorphine Scrn Negative (NEGATIVE) Ur Oxycodone Screen Negative (NEGATIVE) Ur EDDP (Meth Metab) Negative (NEGATIVE) Urine Methadone Screen Negative (NEGATIVE) Ur Barbiturates Screen Negative (NEGATIVE) Ur Tricyclics Screen Negative (NEGATIVE) Ur Phencyclidine Scrn Negative (NEGATIVE) Ur Amphetamine Screen Negative (NEGATIVE) U Methamphetamines Scrn Negative (NEGATIVE) Urine MDMA Screen Negative (NEGATIVE) U Benzodiazepines Scrn Negative (NEGATIVE) U Cocaine Metab Screen Negative (NEGATIVE) U Marijuana (THC) Screen Negative (NEGATIVE) Ethyl Alcohol < 3 (0-3) mg/dL Meds: Medications Generic Name Dose Route Start Last Admin Trade Name Freq PRN Reason Stop Dose Admin Acetaminophen 650 mg 05/20/20 17:59 Acetaminophen 325 Mg Tab PO Q4H PRN Pain (Mild 1-3)/fever Aspirin 325 mg 05/21/20 08:00 Aspirin 325 Mg Tab.Ec PO DAILY LUCIAN Atorvastatin Calcium 80 mg 05/21/20 08:00 Atorvastatin 40 Mg Tab PO DAILY LUCIAN Cholecalciferol 25 mcg 05/21/20 08:00 Cholecalciferol (Vitamin D3) 25 Mcg Tab PO DAILY LUCIAN Cyanocobalamin 1,000 mcg 05/21/20 08:00 Cyanocobalamin (Vitamin B12) 1,000 Mcg Tab PO DAILY LUCIAN Lactated Ringer's 1,000 mls @ 500 mls/hr 05/20/20 15:00 05/20/20 15:05 Ringers, Lactated IV 500 mls/hr ASDIRECTED LUCIAN Administration Lactated Ringer's 1,000 mls @ 75 mls/hr 05/20/20 19:30 Ringers, Lactated IV ASDIRECTED [facility] Lactobacillus Rhamnosus 1 cap 05/21/20 08:00 Lactobacillus Rhamnosus Gg (Probiotic) Cap PO DAILY LUCIAN Multivitamins/Minerals 1 tab 05/21/20 12:00 Multivitamins With Iron/Calcium/Folic Acid/Minerals Tab PO DAILY@12 LUCIAN Sodium Chloride 10 ml 05/20/20 13:56 Sodium Chloride 0.9% 10 Ml Syringe FLUSH ASDIRECTED PRN Keep Vein Open Discontinued Medications Generic Name Dose Route Start Last Admin Trade Name Jhon PRN Reason Stop Dose Admin Iopamidol 100 ml 05/20/20 15:39 05/20/20 15:39 Iopamidol 612 Mg/Ml 100 Ml Bottle IVPUSH 05/20/20 15:40 100 ml ONETIME ONE Administration - Re-Assessments/Exams Free Text/Narrative Re-Assessment/Exam: With the finding of the slurred speech and has past history of stroke code was called his arrival. And the team was already in house. A CT scan was completed that showed no acute hemorrhage. While we are in the CT scanner we attempted to complete a CTA head and neck and he had contrast extravasation into the left arm. We returned to the emergency department. Where the rest of his evaluation was completed and he noted to have an NIH stroke scale of 1 which was only 1 for slurred speech. Laboratory evaluation shows a WBC of 5.6, hemoglobin 13.6, platelet 156. Normal PT/INR. Chemistries mild elevation of his BUN at 22, normal liver enzymes. Glucose 125. Troponin normal at 7. CRP normal. Urinalysis is unremarkable. Urine drug screen is negative. Alcohol is negative. Screening Covid test is negative. Packs were placed to the left arm due to the contrast extravasation. I called and spoke with Dr. Lal the stroke neurologist on-call at [facility] in [place]. HPI ER course findings and concerns were relayed to him. I also informed him of the failure of the initial CTA with the contrast extravasation into his arm. He would like us to restart an IV and complete the CTA of the head and neck to evaluate for any large vessel occlusion. If there is no large vessel occlusion he would like him hydrated and observed overnight as he does not feel that there is any acute interaction that needs to be done with him in the stroke center at this time to include TPA. I relayed the findings and the concerns with the neurologist to the patient and his family. A CTA of the head neck was completed and showed no large vessel occlusion. We will admit him under observation tonight for further care and management. His care will be transferred to his primary care provider in the morning Dr. Alexandre Deluna who has been updated on the plan of care of this patient. Departure - Departure Time of Disposition: 16:36 Disposition: Refer to Observation Clinical Impression: Slurring of speech Injection site extravasation Qualifiers: Encounter type: initial encounter Qualified Code(s): T80.818A - Extravasation of other vesicant agent, initial encounter - Discharge Information - Problem List & Annotations (1) Slurring of speech SNOMED Code(s): 914186722 Code(s): R47.81 - SLURRED SPEECH Status: Acute Current Visit: Yes (2) Injection site extravasation SNOMED Code(s): 63052020 Code(s): T80.818A - EXTRAVASATION OF OTHER VESICANT AGENT, INITIAL ENCOUNTER Status: Acute Current Visit: Yes Qualifiers: Encounter type: initial encounter Qualified Code(s): T80.818A - Extravasation of other vesicant agent, initial encounter - My Orders Last 24 Hours: My Active Orders 05/20/20 13:56 Sodium Chloride 0.9% [Saline Flush] 10 ml FLUSH ASDIRECTED PRN Peripheral IV Insertion Adult [OM.PC] Stat 05/20/20 14:50 CTA Neck W & W/O Contrast [Ang Neck] [CT] Stat 05/20/20 15:00 Lactated Ringers [Ringers, Lactated] 1,000 ml IV ASDIRECTED 05/20/20 15:11 CULTURE URINE [RM] Stat - Assessment/Plan Admission H&P: Please use this note as an admission H&P Last 24 Hours: My Active Orders 05/20/20 13:56 Sodium Chloride 0.9% [Saline Flush] 10 ml FLUSH ASDIRECTED PRN Peripheral IV Insertion Adult [OM.PC] Stat 05/20/20 14:50 CTA Neck W & W/O Contrast [Ang Neck] [CT] Stat 05/20/20 15:00 Lactated Ringers [Ringers, Lactated] 1,000 ml IV ASDIRECTED 05/20/20 15:11 CULTURE URINE [RM] Stat Assessment:: A/P #1: Slurred speech. Element of slurred speech. History of cerebrovascular ask ed accident in the posterior circulation. Continue aspirin therapy. We will do NIH stroke scale every 8 hours and as well as neuro checks. Cardiac monitoring to assess for atrial fibrillation. Continue his aspirin from home. Observe neurological status. Speech evaluation for swallowing. We will start LR @ 75mls/hr. tenuous home medications. Neuro checks as well as NIH stroke scale. #2: Contrast extravasation to the left antecubital fossa. Warm packs to left extremity. Elevation. Observation for compartment syndrome as well as extravasation of the skin. Or sloughing. VTE: Short stay. Teds. Sepsis: no signs at this time. Code status: DNR/DNI Speech pathology for swallowing. We will admit the patient into the hospital for further observation as guided by the neurologist stroke doctor from [facility] in [place]. We will monitor him closely. Most likely be discharged tomorrow if nothing new or worse. He actually had some improvement of his symptoms in the emergency department after the liter of fluid. Continue home medications. Neuro checks as well as NIH stroke scale. Plan on discharge tomorrow if no changes. Discuss with Neurology if any new symptoms. Dr. Danny Deluna to assume care of the patient tomorrow morning and she is aware of the admission upon admission.
[2020-05-20] MEDS ORDERED: Acetaminophen 325 MG Tab PO PRN (17:59)
--- NOTE | 2020-05-20 19:10 | PCM.EKG ---
#1 Interpretation EKG Date: 05/20/20 Time: 14:34 Rhythm: NSR Rate (Beats/Min): 64 Gillett: LAD-Left Gillett Deviation P-Wave: Present QRS: Normal ST-T: Normal QT: Normal Comparison: No Change
[2020-05-20] MEDS ORDERED: diphenhydrAMINE 25 MG Cap PO PRN (21:32)
[2020-05-21 07:25] LABS: CHLORIDE,CL 105 mmol/L (98-107); SODIUM,NA 141 mmol/L (136-145)
[2020-05-21 07:27] LABS: ANION GAP 11.1 mmol/L (5-15)
[2020-05-21] MEDS ORDERED: Aspirin 325 MG Tab.EC PO SCH (08:00)
[2020-05-21] MEDS ORDERED: atorvaSTATin 40 MG Tab PO SCH (08:00)
[2020-05-21] MEDS ORDERED: Lactobacillus Rhamnosus GG (Probiotic) Cap PO SCH (08:00)
[2020-05-21] MEDS ORDERED: Cholecalciferol (Vitamin D3) 25 MCG Tab PO SCH (08:00)
[2020-05-21] MEDS ORDERED: Cyanocobalamin (Vitamin B12) 1,000 MCG Tab PO SCH (08:00)
[2020-05-21 10:22] VITALS: BP 112/64; PULSE 63
[2020-05-21] MEDS ORDERED: Multivitamins with Iron/Calcium/Folic Acid/Minerals Tab PO SCH (12:00)
--- NOTE | 2020-05-22 10:07 | DISCH ---
PRIMARY DISCHARGE DIAGNOSES: 1. An episode of slurred speech with concern for stroke, possibly a transient ischemic attack with history of posterior circulation stroke. 2. Extravasation of medication into the left arm. The patient having no pain in that left arm, just swelling. 3. History of shuffling gait and stooped posture. He has been working with physical therapy. He is not felt to have Parkinson by Neuro in the past. 4. 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 Per rehab hospital, he was 2/3 on word recall with difficulty drawing the clock in the past. 5. Hearing loss. 6. History of prostate cancer. REASON FOR ADMISSION: On the date of admission, this 84-year-old male was at home doing his normal daily routines. His was out at some meetings. When she called home, she felt that his speech was slurred over the phone and then when she arrived home, he had a right facial droop and he had been moving things at home to sit in the chair, that he normally would not do. He was brought into the ER as a stroke code. His head CT was performed and did not show any acute findings. It was discussed with Neurology who recommended a head CTA, which also showed him to have no large vessel occlusion lesions. He did receive some IV fluids, and it was reported that his speech almost improved immediately after that. He had an uneventful night. He has a loop recorder in place. He was monitored with telemetry, and there were no events. The patient is answering questions appropriately this morning. He was awaiting therapies to see him. They did see him, and both PT and Speech felt he could be discharged home. His NIH was only 1 for slurred speech on admission to the ER and that resolved. All of his lab work improved or was stable. states he is still having this stooped posture and shuffling gait that he has had in the past. 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 OTHERWISE DISCHARGE PLANS AND INSTRUCTIONS: The patient will re-follow up with Dr. Deluna in the clinic on 06/01/2020. He will have fasting lab work, lipid, CMP, and CBC to be drawn at [facility] prior. No medication changes were made. If further speech problems or weakness, gait, or drooping of the mouth, they will return immediately for medical care. PHYSICAL EXAMINATION: Vital Signs: Discharge vitals include a temperature of 98.3, weight 99.7 kg, pulse 63, blood pressure 112/64, respiratory rate 20, and O2 of 93% on room air. General: He is in no acute distress. Heart: Regular rate and rhythm. S1, S2 without murmur. Lungs: Lung sounds are clear to auscultation bilaterally without crackles or wheezes. Abdomen: His abdomen has positive bowel sounds. Soft, nondistended, and nontender. Extremities: Warm and dry. No lower extremity edema but the left forearm is swollen the arm is not painful or tender. His radial pulse and cap refill is good Neurologic: He is moving all extremities equally. His speech is fluent and clear. He answers questions appropriately. He does not have any confusion. MKA: 05/21/2020 15:15:26 MODL: 05/22/2020 10:04:10 /[id number] MTDD
== END 2020-05-21 13:20 | disposition home or self-care (01) ==
LOC: VM.ED 13:28 → VM.MS 15:57
PROVIDERS: ADMIT Nurse Practitioner Family; ATTEND Internal Medicine
DX: T80.818A Extravasation of other vesicant agent, initial encounter (principal); R47.81 Slurred speech; H91.90 Unspecified hearing loss, unspecified ear; I69.919 Unspecified symptoms and signs involving cognitive functions following unspecified cerebrovascular disease; R29.810 Facial weakness; Z20.822 Contact with and (suspected) exposure to COVID-19; Z86.73 Personal history of transient ischemic attack (TIA), and cerebral infarction without residual deficits; Z85.46 Personal history of malignant neoplasm of prostate; Z98.890 Other specified postprocedural states
CPT/HCPCS: 36415; 70450; 70496; 80048; 80053; 80305-QW; 80307; 81001; 82962; 83735; 84484; 85025; 85610; 85730; 86140; 87086; 92522-GN; 93005; 97161-GP; 99220; 99285-25; A9270-GY; G0378; J7120; Q9967; U0002

== ENCOUNTER 2024-09-07 09:46 | Inpatient (IN) | payer MEDICARE, OTHER ==
[2024-09-07] MEDS: Lactated Ringers 1,000 ML IV ONE (10:05)
[2024-09-07 10:10] LABS: BASOPHILS ABSOLUTE AUTO 0.0 x10^3/uL (0.0-0.2); BASOPHILS PERCENT AUTO 0.1 % (0.2-1.2); EOSINOPHILS ABSOLUTE AUTO 0.0 x10^3/uL (0.0-0.5); EOSINOPHILS PERCENT AUTO 0.0 % (0.0-4.0); IMMATURE GRAN ABSOLUTE AUTO 0.00 x10^3/uL (0.00-0.07); IMMATURE GRAN PERCENT AUTO 0.00 % (0.00-0.43); LYMPHOCYTES ABSOLUTE AUTO 0.2 x10^3/uL (1.0-4.8); LYMPHOCYTES PERCENT AUTO 2.5 % (25.0-50.0); MONOCYTES ABSOLUTE AUTO 0.4 x10^3/uL (0.0-0.8); MONOCYTES PERCENT AUTO 4.5 % (2.0-11.0); NEUTROPHILS ABSOLUTE AUTO 8.9 x10^3/uL (1.8-7.7); NEUTROPHILS PERCENT AUTO 92.9 % (50.0-80.0); PLATELET COUNT,PLT 162 x10^3/uL (130-400); RED BLOOD CELL COUNT 4.55 x10^6/uL (4.5-6.0); WHITE BLOOD CELL COUNT,WBC 9.6 x10^3/uL (4.0-10.0)
[2024-09-07 10:28] LABS: A/G RATIO 1.13; ALANINE AMINOTRANSFERASE,ALT 12 U/L (16-63); ASPARTATE AMNIOTRANSFERASE,AST 20 U/L (15-37); BILIRUBIN TOTAL 1.0 mg/dL (0.2-1.0); BLOOD UREA NITROGEN,BUN 46 mg/dL (7-18); CARBON DIOXIDE,CO2 32 mmol/L (21-32); CHLORIDE,CL 101 mmol/L (98-107); CREATINE KINASE,CK 75 U/L (39-308); CREATININE 1.5 mg/dL (0.70-1.30); GLUCOSE RANDOM 172 mg/dL (70-99); POTASSIUM,K 4.4 mmol/L (3.5-5.1); PROTEIN TOTAL,TP 6.8 g/dL (6.4-8.2); SODIUM,NA 143 mmol/L (136-145)
[2024-09-07 10:30] LABS: ESTIMATED GFR 45 mL/min (>=60)
[2024-09-07 10:51] LABS: APPEARANCE,URINE SLIGHTLY CLOUDY (CLEAR); GLUCOSE,URINE NEGATIVE (NEGATIVE); OCCULT BLOOD,URINE MODERATE (NEGATIVE)
[2024-09-07 10:56] LABS: SQUAMOUS EPITHELIAL CELLS,UR OCCASIONAL /HPF (NOT SEEN)
[2024-09-07] MEDS ORDERED: Ondansetron 4 MG Tab.DIS PO PRN (11:45)
[2024-09-07] MEDS ORDERED: Ondansetron 4 MG/2 ML SDV IV PRN (11:45)
[2024-09-07] MEDS ORDERED: Sennosides/Docusate Sodium 50-8.6 MG Tab PO PRN (11:45)
[2024-09-07] MEDS: Cyanocobalamin (Vitamin B12) 1,000 MCG Tab PO SCH (20:18)
[2024-09-07] MEDS: Calcium Carbonate/Vitamin D3 1250 MG-5 MCG Tab PO SCH (20:19)
[2024-09-08 07:50] LABS: BASOPHILS ABSOLUTE AUTO 0.0 x10^3/uL (0.0-0.2); BASOPHILS PERCENT AUTO 0.5 % (0.2-1.2); EOSINOPHILS ABSOLUTE AUTO 0.1 x10^3/uL (0.0-0.5); EOSINOPHILS PERCENT AUTO 3.0 % (0.0-4.0); IMMATURE GRAN ABSOLUTE AUTO 0.00 x10^3/uL (0.00-0.07); IMMATURE GRAN PERCENT AUTO 0.00 % (0.00-0.43); LYMPHOCYTES ABSOLUTE AUTO 0.3 x10^3/uL (1.0-4.8); LYMPHOCYTES PERCENT AUTO 5.7 % (25.0-50.0); MONOCYTES ABSOLUTE AUTO 0.3 x10^3/uL (0.0-0.8); MONOCYTES PERCENT AUTO 7.3 % (2.0-11.0); NEUTROPHILS ABSOLUTE AUTO 3.7 x10^3/uL (1.8-7.7); NEUTROPHILS PERCENT AUTO 83.5 % (50.0-80.0); PLATELET COUNT,PLT 109 x10^3/uL (130-400); RED BLOOD CELL COUNT 3.75 x10^6/uL (4.5-6.0); WHITE BLOOD CELL COUNT,WBC 4.4 x10^3/uL (4.0-10.0)
[2024-09-08 08:10] LABS: A/G RATIO 0.96; ALANINE AMINOTRANSFERASE,ALT 14.0 U/L (16-63); ASPARTATE AMNIOTRANSFERASE,AST 26.0 U/L (15-37); BILIRUBIN TOTAL 0.8 mg/dL (0.2-1.0); BLOOD UREA NITROGEN,BUN 30.0 mg/dL (7-18); CARBON DIOXIDE,CO2 26.0 mmol/L (21-32); CHLORIDE,CL 107.0 mmol/L (98-107); CREATININE 0.8 mg/dL (0.70-1.30); EST CRCL DRUG DOSING (CG) 75.64 mL/min; ESTIMATED GFR 86.0 mL/min (>=60); GLUCOSE RANDOM 100.0 mg/dL (70-99); POTASSIUM,K 3.7 mmol/L (3.5-5.1); PROTEIN TOTAL,TP 5.5 g/dL (6.4-8.2); SODIUM,NA 141.0 mmol/L (136-145)
[2024-09-08] MEDS: Sennosides/Docusate Sodium 50-8.6 MG Tab PO SCH (08:23)
[2024-09-09 06:44] LABS: BASOPHILS ABSOLUTE AUTO 0.0 x10^3/uL (0.0-0.2); BASOPHILS PERCENT AUTO 0.7 % (0.2-1.2); EOSINOPHILS ABSOLUTE AUTO 0.1 x10^3/uL (0.0-0.5); EOSINOPHILS PERCENT AUTO 2.5 % (0.0-4.0); IMMATURE GRAN ABSOLUTE AUTO 0.01 x10^3/uL (0.00-0.07); IMMATURE GRAN PERCENT AUTO 0.20 % (0.00-0.43); LYMPHOCYTES ABSOLUTE AUTO 0.2 x10^3/uL (1.0-4.8); LYMPHOCYTES PERCENT AUTO 5.2 % (25.0-50.0); MONOCYTES ABSOLUTE AUTO 0.3 x10^3/uL (0.0-0.8); MONOCYTES PERCENT AUTO 7.7 % (2.0-11.0); NEUTROPHILS ABSOLUTE AUTO 3.7 x10^3/uL (1.8-7.7); NEUTROPHILS PERCENT AUTO 83.7 % (50.0-80.0); RED BLOOD CELL COUNT 3.56 x10^6/uL (4.5-6.0); WHITE BLOOD CELL COUNT,WBC 4.4 x10^3/uL (4.0-10.0)
[2024-09-09 06:58] LABS: PLATELET COUNT,PLT 109 x10^3/uL (130-400)
[2024-09-09 07:02] LABS: BLOOD UREA NITROGEN,BUN 18.0 mg/dL (7-18); CARBON DIOXIDE,CO2 29.0 mmol/L (21-32); CHLORIDE,CL 110.0 mmol/L (98-107); CREATININE 0.8 mg/dL (0.70-1.30); EST CRCL DRUG DOSING (CG) 75.64 mL/min; GLUCOSE RANDOM 97.0 mg/dL (70-99); POTASSIUM,K 3.2 mmol/L (3.5-5.1); SODIUM,NA 146.0 mmol/L (136-145)
[2024-09-09 07:06] LABS: ESTIMATED GFR 86.0 mL/min (>=60)
[2024-09-09] MEDS: Potassium Chloride 10 MEQ Tab.ER PO SCH (09:01)
[2024-09-09] MEDS: Sodium Chloride 0.9% 10 ML Syringe FLUSH PRN (13:37)
[2024-09-10 07:02] LABS: BASOPHILS ABSOLUTE AUTO 0.0 x10^3/uL (0.0-0.2); BASOPHILS PERCENT AUTO 0.9 % (0.2-1.2); EOSINOPHILS ABSOLUTE AUTO 0.2 x10^3/uL (0.0-0.5); EOSINOPHILS PERCENT AUTO 3.7 % (0.0-4.0); IMMATURE GRAN ABSOLUTE AUTO 0.02 x10^3/uL (0.00-0.07); IMMATURE GRAN PERCENT AUTO 0.40 % (0.00-0.43); LYMPHOCYTES ABSOLUTE AUTO 0.4 x10^3/uL (1.0-4.8); LYMPHOCYTES PERCENT AUTO 8.0 % (25.0-50.0); MONOCYTES ABSOLUTE AUTO 0.4 x10^3/uL (0.0-0.8); MONOCYTES PERCENT AUTO 8.4 % (2.0-11.0); NEUTROPHILS ABSOLUTE AUTO 3.7 x10^3/uL (1.8-7.7); NEUTROPHILS PERCENT AUTO 78.6 % (50.0-80.0); PLATELET COUNT,PLT 115 x10^3/uL (130-400); RED BLOOD CELL COUNT 3.69 x10^6/uL (4.5-6.0)
[2024-09-10 07:20] LABS: WHITE BLOOD CELL COUNT,WBC 4.6 x10^3/uL (4.0-10.0)
[2024-09-10 07:22] LABS: BLOOD UREA NITROGEN,BUN 15.0 mg/dL (7-18); CARBON DIOXIDE,CO2 29.0 mmol/L (21-32); CHLORIDE,CL 109.0 mmol/L (98-107); CREATININE 0.8 mg/dL (0.70-1.30); EST CRCL DRUG DOSING (CG) 75.64 mL/min; GLUCOSE RANDOM 80.0 mg/dL (70-99); POTASSIUM,K 3.6 mmol/L (3.5-5.1); SODIUM,NA 145.0 mmol/L (136-145)
[2024-09-10 07:33] LABS: ESTIMATED GFR 86.0 mL/min (>=60)
[2024-09-10 14:46] LABS: BICARBONATE,VENOUS 26 mmol/L (22-29); O2 SATURATION VENOUS 74 %; PCO2 VENOUS 41 mmHG (41-51); PH,VENOUS 7.41 pH (7.32-7.43); PO2 VENOUS 39 mmHG
[2024-09-10 14:47] LABS: BASE EXCESS VENOUS 1 mmol/L ((-2)-3)
[2024-09-10] MEDS: 50% Dextrose in Water 50 ML Syringe IV PRN (15:04)
[2024-09-10] MEDS ORDERED: D5 1/2 NS w/ 10 mEq/L KCl 1,000 ML IV SCH (17:30)
[2024-09-10] MEDS: D5 1/2 NS w/ 20 mEq/L KCl 1,000 ML IV SCH (18:42)
[2024-09-11 06:58] LABS: BASOPHILS ABSOLUTE AUTO 0.0 x10^3/uL (0.0-0.2); BASOPHILS PERCENT AUTO 0.3 % (0.2-1.2); EOSINOPHILS ABSOLUTE AUTO 0.2 x10^3/uL (0.0-0.5); EOSINOPHILS PERCENT AUTO 3.8 % (0.0-4.0); IMMATURE GRAN ABSOLUTE AUTO 0.02 x10^3/uL (0.00-0.07); IMMATURE GRAN PERCENT AUTO 0.30 % (0.00-0.43); LYMPHOCYTES PERCENT AUTO 5.9 % (25.0-50.0); MONOCYTES ABSOLUTE AUTO 0.5 x10^3/uL (0.0-0.8); MONOCYTES PERCENT AUTO 7.7 % (2.0-11.0); NEUTROPHILS ABSOLUTE AUTO 5.1 x10^3/uL (1.8-7.7); NEUTROPHILS PERCENT AUTO 82.0 % (50.0-80.0); PLATELET COUNT,PLT 146 x10^3/uL (130-400); RED BLOOD CELL COUNT 3.98 x10^6/uL (4.5-6.0); WHITE BLOOD CELL COUNT,WBC 6.3 x10^3/uL (4.0-10.0)
[2024-09-11 07:15] LABS: BLOOD UREA NITROGEN,BUN 16.0 mg/dL (7-18); CARBON DIOXIDE,CO2 28.0 mmol/L (21-32); CHLORIDE,CL 106.0 mmol/L (98-107); CREATININE 0.8 mg/dL (0.70-1.30); EST CRCL DRUG DOSING (CG) 75.64 mL/min; GLUCOSE RANDOM 116.0 mg/dL (70-99); POTASSIUM,K 3.7 mmol/L (3.5-5.1); SODIUM,NA 141.0 mmol/L (136-145)
[2024-09-11 07:26] LABS: ESTIMATED GFR 86.0 mL/min (>=60)
[2024-09-11 07:30] LABS: LYMPHOCYTES ABSOLUTE AUTO 0.4 x10^3/uL (1.0-4.8)
[2024-09-12 05:57] VITALS: PULSE 74
[2024-09-12 09:04] VITALS: BP 124/62
[2024-09-12] MEDS: Amoxicillin/Clavulanate K 600-42.9 MG/5 ML Susp 125 ML Bottle PO SCH (10:12)
[2024-09-13 06:06] LABS: WEST NILE AB, SERUM 0.0 IV (<=0.89)
== END 2024-09-12 11:21 | disposition swing bed (61) | DRG 682 ==
LOC: VM.ED 09:46 → OBSVTOIN 11:12 → INTOOBSV 11:12 → VM.MS 11:12 → UNDOADMOB 11:12 → VM.MS 09-08 13:41 → OBSVTOIN 09-08 13:41
PROVIDERS: ADMIT Nurse Practitioner Family; ATTEND Internal Medicine
DX: J18.9 Pneumonia, unspecified organism (principal); N17.9 Acute kidney failure, unspecified; J69.0 Pneumonitis due to inhalation of food and vomit; E44.1 Mild protein-calorie malnutrition; J98.11 Atelectasis; F05 Delirium due to known physiological condition; F02.818 Dementia in other diseases classified elsewhere, unspecified severity, with other behavioral disturbance; E87.20 Acidosis, unspecified; E86.0 Dehydration; H91.90 Unspecified hearing loss, unspecified ear; Z66 Do not resuscitate; M54.9 Dorsalgia, unspecified; G89.29 Other chronic pain; G30.9 Alzheimer's disease, unspecified; G20.A1 Parkinson's disease without dyskinesia, without mention of fluctuations; E16.2 Hypoglycemia, unspecified; E87.6 Hypokalemia; R53.81 Other malaise; M19.90 Unspecified osteoarthritis, unspecified site; D69.6 Thrombocytopenia, unspecified; Z68.23 Body mass index [BMI] 23.0-23.9, adult; I69.319 Unspecified symptoms and signs involving cognitive functions following cerebral infarction; Z98.49 Cataract extraction status, unspecified eye; Z98.890 Other specified postprocedural states; Z79.899 Other long term (current) drug therapy; I10 Essential (primary) hypertension; Z85.46 Personal history of malignant neoplasm of prostate; Z85.828 Personal history of other malignant neoplasm of skin; Z79.82 Long term (current) use of aspirin
CPT/HCPCS: 36415; 70450; 71045; 80048; 80053; 81001; 82140; 82550; 82803; 82947; 83605; 83735; 84484; 85025; 86140; 86788; 87040; 87426-QW; 93005; 93010; 94668; 96360; 96361; 96372; 96374; 97110-GP; 97161-GP; 97530-GP; 99284; 99285-25; A9270-GY; C1758; G0378; J0456; J0696; J1650; J3480; J7030; J7050; J7120; Q3014

== ENCOUNTER 2024-09-12 08:43 | Inpatient (IN) | payer MEDICARE, OTHER ==
[2024-09-12] MEDS ORDERED: Ondansetron 4 MG Tab.DIS PO PRN (09:00)
[2024-09-12] MEDS: Amoxicillin/Clavulanate K 600-42.9 MG/5 ML Susp 125 ML Bottle PO SCH (18:33)
[2024-09-12] MEDS: Calcium Carbonate/Vitamin D3 1250 MG-5 MCG Tab PO SCH (20:26)
[2024-09-12] MEDS: Cyanocobalamin (Vitamin B12) 1,000 MCG Tab PO SCH (20:27)
[2024-09-16 06:23] LABS: BASOPHILS ABSOLUTE AUTO 0.0 x10^3/uL (0.0-0.2); BASOPHILS PERCENT AUTO 0.6 % (0.2-1.2); EOSINOPHILS ABSOLUTE AUTO 0.2 x10^3/uL (0.0-0.5); EOSINOPHILS PERCENT AUTO 3.2 % (0.0-4.0); IMMATURE GRAN ABSOLUTE AUTO 0.02 x10^3/uL (0.00-0.07); IMMATURE GRAN PERCENT AUTO 0.30 % (0.00-0.43); LYMPHOCYTES ABSOLUTE AUTO 0.3 x10^3/uL (1.0-4.8); LYMPHOCYTES PERCENT AUTO 4.7 % (25.0-50.0); MONOCYTES ABSOLUTE AUTO 0.4 x10^3/uL (0.0-0.8); MONOCYTES PERCENT AUTO 6.5 % (2.0-11.0); NEUTROPHILS ABSOLUTE AUTO 5.7 x10^3/uL (1.8-7.7); NEUTROPHILS PERCENT AUTO 84.7 % (50.0-80.0); PLATELET COUNT,PLT 189 x10^3/uL (130-400); RED BLOOD CELL COUNT 4.03 x10^6/uL (4.5-6.0); WHITE BLOOD CELL COUNT,WBC 6.8 x10^3/uL (4.0-10.0)
[2024-09-16 06:37] LABS: BLOOD UREA NITROGEN,BUN 17.0 mg/dL (7-18); CARBON DIOXIDE,CO2 31.0 mmol/L (21-32); CHLORIDE,CL 106.0 mmol/L (98-107); CREATININE 0.8 mg/dL (0.70-1.30); EST CRCL DRUG DOSING (CG) 75.64 mL/min; ESTIMATED GFR 86.0 mL/min (>=60); GLUCOSE RANDOM 111.0 mg/dL (70-99); POTASSIUM,K 4.0 mmol/L (3.5-5.1); SODIUM,NA 141.0 mmol/L (136-145)
[2024-09-17] MEDS: Sennosides/Docusate Sodium 50-8.6 MG Tab PO PRN (20:23)
[2024-09-30 06:47] LABS: BASOPHILS ABSOLUTE AUTO 0.0 x10^3/uL (0.0-0.2); BASOPHILS PERCENT AUTO 0.5 % (0.2-1.2); EOSINOPHILS ABSOLUTE AUTO 0.2 x10^3/uL (0.0-0.5); EOSINOPHILS PERCENT AUTO 2.7 % (0.0-4.0); IMMATURE GRAN ABSOLUTE AUTO 0.02 x10^3/uL (0.00-0.07); IMMATURE GRAN PERCENT AUTO 0.30 % (0.00-0.43); LYMPHOCYTES ABSOLUTE AUTO 0.4 x10^3/uL (1.0-4.8); LYMPHOCYTES PERCENT AUTO 5.9 % (25.0-50.0); MONOCYTES ABSOLUTE AUTO 0.5 x10^3/uL (0.0-0.8); MONOCYTES PERCENT AUTO 6.9 % (2.0-11.0); NEUTROPHILS ABSOLUTE AUTO 6.2 x10^3/uL (1.8-7.7); NEUTROPHILS PERCENT AUTO 83.7 % (50.0-80.0); PLATELET COUNT,PLT 182 x10^3/uL (130-400); RED BLOOD CELL COUNT 4.31 x10^6/uL (4.5-6.0); WHITE BLOOD CELL COUNT,WBC 7.4 x10^3/uL (4.0-10.0)
[2024-09-30 07:08] LABS: BLOOD UREA NITROGEN,BUN 16.0 mg/dL (7-18); CARBON DIOXIDE,CO2 34.0 mmol/L (21-32); CHLORIDE,CL 103.0 mmol/L (98-107); CREATININE 1.0 mg/dL (0.70-1.30); EST CRCL DRUG DOSING (CG) 60.51 mL/min; GLUCOSE RANDOM 100.0 mg/dL (70-99); POTASSIUM,K 4.7 mmol/L (3.5-5.1); SODIUM,NA 143.0 mmol/L (136-145)
[2024-09-30 07:20] LABS: ESTIMATED GFR 73.0 mL/min (>=60)
[2024-09-30] MEDS: Carbidopa/Levodopa 50-200 MG Tab.ER PO SCH (20:25)
[2024-10-07 06:59] LABS: BASOPHILS ABSOLUTE AUTO 0.0 x10^3/uL (0.0-0.2); BASOPHILS PERCENT AUTO 0.6 % (0.2-1.2); EOSINOPHILS ABSOLUTE AUTO 0.2 x10^3/uL (0.0-0.5); EOSINOPHILS PERCENT AUTO 2.9 % (0.0-4.0); IMMATURE GRAN ABSOLUTE AUTO 0.01 x10^3/uL (0.00-0.07); IMMATURE GRAN PERCENT AUTO 0.10 % (0.00-0.43); LYMPHOCYTES ABSOLUTE AUTO 0.4 x10^3/uL (1.0-4.8); LYMPHOCYTES PERCENT AUTO 5.6 % (25.0-50.0); MONOCYTES ABSOLUTE AUTO 0.4 x10^3/uL (0.0-0.8); MONOCYTES PERCENT AUTO 6.5 % (2.0-11.0); NEUTROPHILS ABSOLUTE AUTO 5.7 x10^3/uL (1.8-7.7); NEUTROPHILS PERCENT AUTO 84.3 % (50.0-80.0); PLATELET COUNT,PLT 147 x10^3/uL (130-400); RED BLOOD CELL COUNT 4.12 x10^6/uL (4.5-6.0); WHITE BLOOD CELL COUNT,WBC 6.8 x10^3/uL (4.0-10.0)
[2024-10-07 07:36] LABS: A/G RATIO 1.03; ALANINE AMINOTRANSFERASE,ALT 25.0 U/L (16-63); ASPARTATE AMNIOTRANSFERASE,AST 22.0 U/L (15-37); BILIRUBIN TOTAL 0.5 mg/dL (0.2-1.0); BLOOD UREA NITROGEN,BUN 17.0 mg/dL (7-18); CARBON DIOXIDE,CO2 30.0 mmol/L (21-32); CHLORIDE,CL 104.0 mmol/L (98-107); CREATININE 0.7 mg/dL (0.70-1.30); EST CRCL DRUG DOSING (CG) 86.44 mL/min; ESTIMATED GFR 89.0 mL/min (>=60); GLUCOSE RANDOM 97.0 mg/dL (70-99); POTASSIUM,K 4.1 mmol/L (3.5-5.1); PROTEIN TOTAL,TP 6.1 g/dL (6.4-8.2); SODIUM,NA 144.0 mmol/L (136-145)
[2024-10-14] MEDS: Aspirin 325 MG Tab.EC PO SCH (08:10)
[2024-10-14 13:53] VITALS: BP 116/62; PULSE 84
== END 2024-10-14 13:45 | disposition home or self-care (01) | DRG 57 ==
LOC: VM.MS 11:23
PROVIDERS: ADMIT Internal Medicine; ATTEND Internal Medicine
DX: G30.9 Alzheimer's disease, unspecified (principal); F05 Delirium due to known physiological condition; E44.1 Mild protein-calorie malnutrition; F02.818 Dementia in other diseases classified elsewhere, unspecified severity, with other behavioral disturbance; R53.81 Other malaise; Z66 Do not resuscitate; H91.90 Unspecified hearing loss, unspecified ear; G20.A1 Parkinson's disease without dyskinesia, without mention of fluctuations; G47.00 Insomnia, unspecified; I95.1 Orthostatic hypotension; G89.29 Other chronic pain; M54.9 Dorsalgia, unspecified; Z85.46 Personal history of malignant neoplasm of prostate; Z86.73 Personal history of transient ischemic attack (TIA), and cerebral infarction without residual deficits; Z68.24 Body mass index [BMI] 24.0-24.9, adult
CPT/HCPCS: 36415; 71046; 74230; 80048; 80053; 85025; 92610-GN; 94668; 97110-GO; 97110-GP; 97116-GP; 97165-GO; 97530-GP; 97535-GO; A9270-GY